=== PATIENT | female | born 1950 | race Caucasian/White ===

== ENCOUNTER → 2023-12-28 08:16 | Outpatient (REF) | payer MEDICARE, OTHER, SELFPAY ==
[2023-12-28 09:34] LABS: Blood Urea Nitrogen 20 mg/dl (7-17); Calcium 9.5 mg/dl (8.4-10.2); Carbon Dioxide 23 mmol/L (22-30); Chloride 107 mmol/L (98-107); Glucose 115 mg/dl (70-99); Potassium 4.3 mmol/L (3.5-5.1); Sodium 138 mmol/L (135-145); eGFR > 60.00
== END ==
LOC: REG 08:16
PROVIDERS: ATTENDING PHYSICIAN Specialist; FAMILY PHYSICIAN Family Medicine
DX: I10 Essential (primary) hypertension (principal); E87.6 Hypokalemia; R80.9 Proteinuria, unspecified; E87.20 Acidosis, unspecified
CPT/HCPCS: 36415; 80048

== ENCOUNTER → 2024-03-09 06:43 | Outpatient (REF) | payer MEDICARE, OTHER, SELFPAY ==
[2024-03-09 09:29] LABS: Blood Urea Nitrogen 19 mg/dl (7-17); Carbon Dioxide 21 mmol/L (22-30); Chloride 107 mmol/L (98-107); Glucose 111 mg/dl (70-99); Potassium 4.5 mmol/L (3.5-5.1); Sodium 137 mmol/L (135-145); eGFR > 60.00
== END ==
LOC: REG 06:43
PROVIDERS: ATTENDING PHYSICIAN Specialist
DX: E87.6 Hypokalemia (principal); I10 Essential (primary) hypertension; E87.20 Acidosis, unspecified
CPT/HCPCS: 36415; 80048

== ENCOUNTER → 2024-04-13 08:49 | Outpatient (REF) | payer MEDICARE, OTHER, SELFPAY ==
[2024-04-13 11:06] LABS: Urine Protein < 5 mg/dl (0-12)
[2024-04-13 12:14] LABS: Blood Urea Nitrogen 21 mg/dl (7-17); Calcium 10.2 mg/dl (8.4-10.2); Carbon Dioxide 19 mmol/L (22-30); Chloride 106 mmol/L (98-107); Glucose 112 mg/dl (70-99); Potassium 4.7 mmol/L (3.5-5.1); Sodium 138 mmol/L (135-145); eGFR > 60.00
== END ==
LOC: REG 08:49
PROVIDERS: ATTENDING PHYSICIAN Specialist; FAMILY PHYSICIAN Family Medicine
DX: E87.6 Hypokalemia (principal); I10 Essential (primary) hypertension; E87.20 Acidosis, unspecified; R80.1 Persistent proteinuria, unspecified
CPT/HCPCS: 36415; 80048; 82570; 84156

== ENCOUNTER → 2024-06-22 10:02 | Outpatient (REF) | payer MEDICARE, OTHER, SELFPAY | LOC: RAD 10:02 | PROVIDERS: ATTENDING PHYSICIAN Internal Medicine Rheumatology; FAMILY PHYSICIAN Family Medicine | DX: M06.00 Rheumatoid arthritis without rheumatoid factor, unspecified site (principal); M16.10 Unilateral primary osteoarthritis, unspecified hip | CPT/HCPCS: 73521 ==

== ENCOUNTER → 2024-09-23 06:43 | Outpatient (REF) | payer MEDICARE, OTHER, SELFPAY ==
[2024-09-23 08:37] LABS: Urine Protein 14 mg/dl (0-12)
[2024-09-23 08:55] LABS: Blood Urea Nitrogen 19 mg/dl (7-17); Calcium 9.4 mg/dl (8.4-10.2); Carbon Dioxide 17 mmol/L (22-30); Chloride 111 mmol/L (98-107); Glucose 95 mg/dl (70-99); Potassium 4.1 mmol/L (3.5-5.1); Sodium 146 mmol/L (135-145); eGFR > 60.00
== END ==
LOC: REG 06:43
PROVIDERS: ATTENDING PHYSICIAN Specialist; FAMILY PHYSICIAN Family Medicine
DX: E87.6 Hypokalemia (principal); I10 Essential (primary) hypertension; E87.20 Acidosis, unspecified; R80.1 Persistent proteinuria, unspecified
CPT/HCPCS: 36415; 80048; 82570; 84156

== ENCOUNTER → 2024-12-26 10:03 | Outpatient (REF) | payer MEDICARE, OTHER, SELFPAY ==
[2024-12-26 13:07] LABS: ALT (SGPT) 54 U/L (0-35); AST (SGOT) 33 U/L (14-36); Albumin 4.6 g/dl (3.5-5.0); Alkaline Phosphatase 106 U/L (38-126); Blood Urea Nitrogen 16 mg/dl (7-17); Calcium 9.8 mg/dl (8.4-10.2); Carbon Dioxide 19 mmol/L (22-30); Chloride 106 mmol/L (98-107); Direct Bilirubin 0.2 mg/dl (0.0-0.4); Glucose 107 mg/dl (70-99); Potassium 4.3 mmol/L (3.5-5.1); Sodium 139 mmol/L (135-145); Total Bilirubin 0.5 mg/dl (0.2-1.3); Total Protein 7.6 g/dl (6.3-8.2); eGFR > 60.00
[2024-12-26 17:04] LABS: Protein/creatinine Ratio 0.1; Urine Protein 6 mg/dl; Urine Protein 6 mg/dl (0-12)
== END ==
LOC: REG 10:03
PROVIDERS: ATTENDING PHYSICIAN Specialist; FAMILY PHYSICIAN Family Medicine; OTHER PHYSICIAN Internal Medicine Rheumatology
DX: I10 Essential (primary) hypertension (principal); E87.6 Hypokalemia; Z51.81 Encounter for therapeutic drug level monitoring
CPT/HCPCS: 36415; 80053; 82248; 82570; 84156

== ENCOUNTER → 2025-03-28 07:10 | Outpatient (REF) | payer MEDICARE, OTHER, SELFPAY ==
[2025-03-28 07:52] LABS: Lactic Acid 1.6 mmol/L (0.7-2.0)
[2025-03-28 08:18] LABS: Blood Urea Nitrogen 15 mg/dl (7-17); Calcium 9.2 mg/dl (8.4-10.2); Carbon Dioxide 21 mmol/L (22-30); Chloride 115 mmol/L (98-107); Glucose 97 mg/dl (70-99); Potassium 3.7 mmol/L (3.5-5.1); eGFR > 60.00
[2025-03-28 08:28] LABS: Sodium 142 mmol/L (135-145)
== END ==
LOC: REG 07:10
PROVIDERS: ATTENDING PHYSICIAN Specialist
DX: I10 Essential (primary) hypertension (principal); E87.6 Hypokalemia; E87.20 Acidosis, unspecified; R80.9 Proteinuria, unspecified
CPT/HCPCS: 36415; 80048; 83605